=== PATIENT | female | born 1970 | race Caucasian/White ===

== ENCOUNTER 2017-03-29 19:08 | Emergency (ER) | payer SELFPAY ==
[~2017-03-29] VITALS: Ht 182.8 cm; Wt 95.3 kg
[~2017-03-29 19:08] MED LIST: AMITIZA24 MCG PO; BACLOFEN10 MG PO; MEDROL DOSEPAK4 MG PO; MS CONTIN15 MG PO; NEURONTIN300 MG PO; SKELAXIN800 MG PO; VICO75300 PO; XANAX0.25 MG PO
[2017-03-29] MEDS ORDERED: CEPHALEXIN500 M1 PO (21:47)
== END 2017-03-29 22:28 | disposition home or self-care (01) ==
LOC: ED 19:08
DX: S61.412A Laceration without foreign body of left hand, initial encounter (principal); Z98.890 Other specified postprocedural states; Z90.710 Acquired absence of both cervix and uterus; Z79.899 Other long term (current) drug therapy; W26.8XXA Contact with other sharp object(s), not elsewhere classified, initial encounter; Y93.89 Activity, other specified; Y92.89 Other specified places as the place of occurrence of the external cause; Y99.9 Unspecified external cause status

== ENCOUNTER → 2018-02-01 | Outpatient (CLI) | payer BC ==
[~2018-02-01] MED LIST changes: +CEPHALEXIN500 M1 PO
== END | disposition home or self-care (01) ==
LOC: RAD 11:29
DX: M54.5 Low back pain (principal); M25.562 Pain in left knee

== ENCOUNTER 2018-12-02 10:12 | Emergency (ER) | payer BC ==
[~2018-12-02] VITALS: Wt 97.5 kg
[2018-12-02] MEDS ORDERED: FLONASE ALLERG9.9 ML NAS (10:27)
[2018-12-02] MEDS ORDERED: MUCINEX DM ER1 EACH PO (10:27)
[2018-12-02] MEDS ORDERED: PREDNISONE10 MG PO (10:27)
[2018-12-02] MEDS ORDERED: CLARITIN10 MG PO (10:27)
== END 2018-12-02 11:15 | disposition home or self-care (01) ==
LOC: ED 10:12
DX: J20.9 Acute bronchitis, unspecified (principal); R03.0 Elevated blood-pressure reading, without diagnosis of hypertension; Z79.2 Long term (current) use of antibiotics; Z79.899 Other long term (current) drug therapy; Z90.710 Acquired absence of both cervix and uterus; Z90.49 Acquired absence of other specified parts of digestive tract

== ENCOUNTER → 2021-10-25 | Outpatient (CLI) | payer SELFPAY ==
[~2021-10-25] MED LIST changes: +CLARITIN10 MG PO; +FLONASE ALLERG9.9 ML NAS; +MUCINEX DM ER1 EACH PO; +PREDNISONE10 MG PO
== END | disposition home or self-care (01) ==
LOC: MRI 10:00
PROVIDERS: ATTEND Internal Medicine
DX: M47.816 Spondylosis without myelopathy or radiculopathy, lumbar region (principal); G89.29 Other chronic pain

== ENCOUNTER → 2023-07-26 | Outpatient (CLI) | payer MEDICARE | END | disposition home or self-care (01) | LOC: MAMMO 09:21 | PROVIDERS: ATTEND Nurse Practitioner Women's Health | DX: Z12.31 Encounter for screening mammogram for malignant neoplasm of breast (principal); N64.89 Other specified disorders of breast ==

== ENCOUNTER → 2023-08-17 | Outpatient (CLI) | payer MEDICARE | END | disposition home or self-care (01) | LOC: MAMMO 08:56 | PROVIDERS: ATTEND Nurse Practitioner Women's Health | DX: R92.1 Mammographic calcification found on diagnostic imaging of breast (principal) ==